=== PATIENT | male | born 1935 ===

== ENCOUNTER 2023-12-29 12:50 | Outpatient (CLI) | payer MEDICARE, MEDICAID, SELFPAY | END 2023-12-29 12:51 | disposition home or self-care (01) | LOC: ANHAUDIO 12:51 | PROVIDERS: PCP Otolaryngology; Visit Provider Otolaryngology | DX: H90.3 Sensorineural hearing loss, bilateral (principal) | CPT/HCPCS: 92557; 92567 ==